=== PATIENT | male | born 1980 | race Caucasian/White ===

== ENCOUNTER 2016-11-06 20:58 | Emergency (ER) | payer OTHER ==
[~2016-11-06 20:58] MED LIST: CARDIZEM30 M1 PO
== END 2016-11-06 21:06 | disposition home or self-care (01) ==
LOC: SED 20:58
DX: S61.011A Laceration without foreign body of right thumb without damage to nail, initial encounter (principal); Z23 Encounter for immunization; W45.8XXA Other foreign body or object entering through skin, initial encounter; Y92.009 Unspecified place in unspecified non-institutional (private) residence as the place of occurrence of the external cause
CPT/HCPCS: 12001; 90471; 90715; 99283